=== PATIENT | female | born 1995 | race Caucasian/White ===

== ENCOUNTER 2024-08-04 12:17 | Emergency (ER) | payer OTHER ==
[2024-08-04 12:40] VITALS: TEMP 96.4
[2024-08-04] MEDS ORDERED: BENADRYL 50 MG/ML ONE (13:22)
[2024-08-04] MEDS ORDERED: TORAdol 30 mg Injection ONE (13:22)
[2024-08-04] MEDS ORDERED: Sodium Chloride 0.9% 1000 ML 1,000 ML ONE (13:22)
[2024-08-04] MEDS ORDERED: Compazine 10 MG/2 ML ONE (13:22)
[2024-08-04] MEDS: Compazine 10 MG/2 ML IV ONE (13:25)
[2024-08-04] MEDS: Sodium Chloride 0.9% 1000 ML 1,000 ML IV STA (13:25)
[2024-08-04] MEDS: BENADRYL 50 MG/ML IV ONE (13:26)
[2024-08-04] MEDS: TORAdol 30 mg Injection IV ONE (13:26)
[2024-08-04 13:43] LABS: Absolute Neutrophil Ct (ANC) 6.66 x10^3/uL (1.56-6.13); BASOPHIL % 0.8 % (0.1-1.2); Basophil (Absolute #) 0.09 x10^3/uL (0.01-0.08); Eosinophil % 3.7 % (0.7-5.8); Eosinophil (Absolute #) 0.42 x10^3/uL (0.04-0.36); Hemoglobin 13.5 g/dL (11.2-15.7); IMMATURE GRAN # 0.04 x10^3u/L (0.001-0.031); IMMATURE GRAN % 0.4 % (0.001-0.429); Lymphocytes % 29.4 % (19.3-51.7); Mean Cell Volume 90.1 fL (79.4-94.8); Mean Corpuscular Hemoglobin 29.7 pg (25.6-32.2); Mean Corpuscular Hgb Concent. 32.9 g/dL (32.2-35.5); Monocytes % 6.2 % (4.7-12.5); Neutrophil % 59.5 % (34.0-71.1); Platelet Count 302 x10^3/uL (182-369); Red Blood Count 4.55 x10^6/uL (3.93-5.22); Red Cell Distribution Width 12.3 % (11.7-14.4); White Blood Count 11.2 x10^3/uL (3.98-10.04)
[2024-08-04 13:56] LABS: ALBUMIN 3.9 g/dL (3.5-5.0); ANION GAP 11.6 MEQ/L (5-15); BILIRUBIN,TOTAL 0.3 mg/dL (0.2-1.3); Calcium 9.1 mg/dL (8.4-10.2); Creatinine 1 0.92 mg/dL (0.52-1.04); Potassium 4.1 mmol/L (3.5-5.1); Total Protein 7.6 g/dL (6.3-8.2)
--- NOTE | 2024-08-04 13:59 | XRAY ---
Indication: Left head injury. Seizure. Multiple contiguous axial images obtained through the head without contrast. Comparison: None Normal appearing brain parenchyma, ventricles, and bony calvarium. Visualized paranasal sinuses and mastoid air cells are clear. Impression: Normal CT head without contrast exam.
[2024-08-04 14:04] VITALS: BP 158/108; PULSE 70; RESP 26; O2SAT 98
--- NOTE | 2024-08-04 14:13 | ERPHSYRPT ---
- History of Present Illness Time Seen by Provider: 08/04/24 12:50 Source: patient Exam Limitations: no limitations Patient Subjective Stated Complaint: pt states that she gets headaches after a seizure and she had one this morning, pt states that she did hit the left back side of her head on a concrete floor Triage Nursing Assessment: Pt was brought to the ER by her sister, tony wnl, rates pain as 8.5-9/10, pulses normal, pt walked into the ER without assistance, skin n/w/d, no difficulty breathing, head tender to palpataion on the left back side, N&V, hx of seizures Physician History: 28-year-old female presents to our ED for migraine headache. Patient states that she develops migraines after her seizures. Patient reports that she is new to town. Patient moved from her old home due to issues with her significant other. Patient has been in the area for approximately 1 month. Patient states she ran out of her medications occluding her antiepileptic medication. Patient had a seizure today. Patient is here for medication refill and management of her headache. No other complaints. No neck pain. Cervical spine cleared clinically. Symptoms are mild to moderate in intensity. Patient otherwise fe els well she voices no other complaints or concerns at this time. Portions of this note were created with voice recognition technology. There may be grammatical, spelling, punctuation or sound alike errors Timing/Duration: today Severity: moderate Modifying Factors: Improves With: nothing Associated Symptoms: denies symptoms Allergies/Adverse Reactions: amoxicillin Allergy (Verified 08/04/24 12:32) Anaphylactic Reaction bee venom protein (honey bee) Allergy (Verified 08/04/24 12:32) cefaclor [From Ceclor] Allergy (Verified 08/04/24 12:32) Anaphylactic Reaction ketoconazole Allergy (Verified 08/04/24 12:32) Anaphylactic Reaction Penicillins Allergy (Verified 08/04/24 12:32) Anaphylactic Reaction Home Medications: Epinephrine [Auvi-Q] 0.3 mg IJ UD 08/04/24 [History] Hx Influenza Vaccination/Date Given: Yes Hx Pneumococcal Vaccination/Date Given: Yes Travel Risk - International Travel Have you traveled outside of the country in past 3 weeks: No - Emerging Infectious Disease Are you exhibiting symptoms associated with any current EIDs: No - Review of Systems Constitutional: No Symptoms, No Fever, No Chills Eyes: No Symptoms Ears, Nose, & Throat: No Symptoms Respiratory: No Symptoms, No Cough, No Dyspnea Cardiac: No Symptoms, No Chest Pain, No Edema, No Syncope Abdominal/Gastrointestinal: No Symptoms, No Abdominal Pain, No Nausea, No Vomiting, No Diarrhea Genitourinary Symptoms: No Symptoms, No Dysuria Musculoskeletal: No Symptoms, No Back Pain, No Neck Pain Skin: No Symptoms, No Rash Neurological: No Symptoms, No Dizziness, No Focal Weakness, No Sensory Changes Psychological: No Symptoms Endocrine: No Symptoms Hematologic/Lymphatic: No Symptoms Immunological/Allergic: No Symptoms All Other Systems: Reviewed and Negative - Past Medical History Pertinent Past Medical History: Yes Neurological History: Seizures Respiratory History: Asthma Psycho-Social History: Attention Deficit Disorder - Past Surgical History Past Surgical History: Yes Gastrointestinal: Cholecystectomy Other Surgical History: teeth - Female History Hx Last Menstrual Period: 08/02/2024 Hx Now: No - Social History Smoking Status: Current every day smoker How long have you smoked: vape Exposure to second hand smoke: No Drug Use: marijuana - Social Determinants of Health Will the patient participate in the screening: Yes Do you worry about a steady place to live?: No Do you have any problems with any of the following?: No known problems In the past 12 months,have you had to go without utilities?: No Transportation Issues: No Has anyone in your support network made you feel unsafe?: No Have you or anyone in your house had to go without enough: No - Nursing Vital Signs Nursing Vital Signs: Initial Vital Signs Temperature 96.4 F 08/04/24 12:25 Pulse Rate 80 08/04/24 12:25 Blood Pressure 128/85 08/04/24 12:25 O2 Sat by Pulse Oximetry 97 08/04/24 12:25 Pain Scale Pain Intensity 9 - Physical Exam General Appearance: no apparent distress, alert Eye Exam: PERRL/EOMI, eyes nml inspection Ears, Nose, Throat Exam: normal ENT inspection, moist mucous membranes Neck Exam: normal inspection, full range of motion Respiratory Exam: normal breath sounds, lungs clear, airway intact, No respiratory distress Cardiovascular Exam: regular rate/rhythm, normal heart sounds, normal peripheral pulses Gastrointestinal/Abdomen Exam: soft, normal bowel sounds, No tenderness, No mass Back Exam: normal inspection, normal range of motion, No CVA tenderness, No vertebral tenderness Extremity Exam: normal inspection, normal range of motion, pelvis stable Neurologic Exam: alert, oriented x 3, cooperative, normal mood/affect, sensation nml, No motor deficits Skin Exam: normal color, warm, dry, No rash Lymphatic Exam: No adenopathy SpO2 Interpretation: normal SpO2: 98 O2 Delivery: Room Air - Course Nursing assessment & vital signs reviewed: Yes - CT Exams Head CT Interpretation: Tele-radiologist Report (CT head negative for acute intracranial pathology) Ordered Tests: Active Orders 24 hr Category Date Time Status Headlight Adjuster STAT Care 08/04/24 12:35 Active IV Insertion STAT Care 08/04/24 12:34 Active Pulse Oximetry (ED) STAT Care 08/04/24 12:34 Active HEAD WITHOUT CONTRAST [CT] Stat Exams 08/04/24 12:34 Completed CBC W DIFF Stat Lab 08/04/24 13:41 Completed CMP Stat Lab 08/04/24 13:41 Completed Medication Summary Discontinued Medications Generic Name Dose Route Start Last Admin Trade Name Freq PRN Reason Stop Dose Admin Diphenhydramine HCl 25 mg 08/04/24 12:38 08/04/24 13:26 Diphenhydramine Hcl 50 Mg/Ml Vial IV 08/04/24 12:39 25 mg STAT ONE Administration Diphenhydramine HCl Confirm 08/04/24 13:22 Diphenhydramine Hcl 50 Mg/Ml Vial Administered 08/04/24 13:23 Dose 50 mg .ROUTE .STK-MED ONE Sodium Chloride 1,000 mls @ 999 mls/hr 08/04/24 12:34 08/04/24 13:25 Sodium Chloride 0.9% 1000 Ml IV 08/04/24 13:34 999 mls/hr .Q1H1M STA Administration Sodium Chloride Confirm 08/04/24 13:22 Sodium Chloride 0.9% 1000 Ml Administered 08/04/24 13:23 Dose 1,000 mls @ ud .ROUTE .STK-MED ONE Ketorolac Tromethamine 30 mg 08/04/24 12:36 08/04/24 13:26 Ketorolac Tromethamine 30 Mg/Ml Inj IV 08/04/24 12:37 30 mg STAT ONE Administration Ketorolac Tromethamine Confirm 08/04/24 13:22 Ketorolac Tromethamine 30 Mg/Ml Inj Administered 08/04/24 13:23 Dose 30 mg .ROUTE .STK-[facility] ONE Prochlorperazine Edisylate 10 mg 08/04/24 12:36 08/04/24 13:25 Prochlorperazine Edisylate 10 Mg/2 Ml Vial IV 08/04/24 12:37 10 mg STAT ONE Administration Prochlorperazine Edisylate Confirm 08/04/24 13:22 Prochlorperazine Edisylate 10 Mg/2 Ml Vial Administered 08/04/24 13:23 Dose 10 mg .ROUTE .[facility] Lab/Rad Data: Laboratory Result Diagrams 08/04/24 13:41 08/04/24 13:41 Laboratory Results 08/04/24 08/04/24 Range/Units 13:41 13:41 WBC 11.2 H (3.98-10.04) x10^3/uL RBC 4.55 (3.93-5.22) x10^6/uL Hgb 13.5 (11.2-15.7) g/dL Hct 41.0 (34.1-44.9) % MCV 90.1 (79.4-94.8) fL MCH 29.7 (25.6-32.2) pg MCHC 32.9 (32.2-35.5) g/dL RDW 12.3 (11.7-14.4) % Plt Count 302 (182-369) x10^3/uL MPV 10.0 (9.4-12.3) fL Gran % 59.5 (34.0-71.1) % Immature Gran % (Auto) 0.4 (0.001-0.429) % Nucleat RBC Rel Count 0.0 (0.00-0.2) % Eos # (Auto) 0.42 H (0.04-0.36) x10^3/uL Immature Gran # (Auto) 0.04 H (0.001-0.031) x10^3u/L Absolute Lymphs (auto) 3.30 (1.18-3.74) x10^3/uL Absolute Monos (auto) 0.70 (0.24-0.86) x10^3/uL Absolute Nucleated RBC 0.00 (0.00-0.012) x10^3u/L Lymphocytes % 29.4 (19.3-51.7) % Monocytes % 6.2 (4.7-12.5) % Eosinophils % 3.7 (0.7-5.8) % Basophils % 0.8 (0.1-1.2) % Absolute Granulocytes 6.66 H (1.56-6.13) x10^3/uL Basophils # 0.09 H (0.01-0.08) x10^3/uL Sodium 142 (135-145) mmol/L Potassium 4.1 (3.5-5.1) mmol/L Chloride 109 H (98-107) mmol/L Carbon Dioxide 26 (22-30) mmol/L Anion Gap 11.6 (5-15) MEQ/L BUN 10 (7-17) mg/dL Creatinine 0.92 (0.52-1.04) mg/dL Estimated GFR 87.0 ML/MIN Glucose 96 (74-106) mg/dL Calcium 9.1 (8.4-10.2) mg/dL Total Bilirubin 0.30 (0.2-1.3) mg/dL AST 29 (14-36) U/L ALT 36 H (0-35) U/L Alkaline Phosphatase 69 (38-126) U/L Serum Total Protein 7.6 (6.3-8.2) g/dL Albumin 3.9 (3.5-5.0) g/dL - Progress Progress: improved Progress Note: 28-year-old female history of seizure. Patient noncompliant with her outpatient regimen. Patient reports she ran out. Patient had a seizure. Now complains o f a migraine headache. Physical exam essentially nonremarkable. Neurologic exam normal. CT head negative for acute intracranial pathology. Patient's headache treated and resolved. Medications refilled. Will discharge home. Patient voices no other complaints or concerns at this time. Vital stable. Laboratory workup essentially nonremarkable. Portions of this note were created with voice recognition technology. There may be grammatical, spelling, punctuation or sound alike errors Complexity of problem addressed is moderate acute complicated. No critical care time. Complex of data reviewed and analyzed is moderate. Test ordered test reviewed results analyzed and correlated clinically with history and physical exam. Risk of complication and or risk of morbidity/mortality of patient management is moderate. Refill medications forwarded to patient's pharmacy. Vital stable. Time spent to discharge patient approximately 20 minutes. Plan of care established for shared decision making. No social determinants of health present to impede follow-up Portions of this note were created with voice recognition technology. There may be grammatical, spelling, punctuation or sound alike errors 08/04/24 14:19 Counseled pt/family regarding: diagnosis, need for follow-up, rad results - Departure Departure Disposition: Home Clinical Impression: Migraine, Seizure, Noncompliance with medication regimen, Medication refill Condition: Stable Critical Care Time: No Referrals: DASIA VICTORIA DO [Primary Care Provider] - Follow up/PCP as directed JAIME HERBERT MD [ACTIVE STAFF] - Follow up/PCP as directed Additional Instructions: Discharge/Care Plan JOHN ALLEN was seen on 08/04/24 in the Emergency Room. The patient was counseled regarding Diagnosis,Lab results, Imaging studies, need for follow up and when to return to the Emergency Room. Prescriptions given: Discharge Note I have spoken with the patient and/or caregivers. I have explained the patient's condition, diagnosis and treatment plan based on the information available to me at this time. I have answered the patient's and/or caregiver's questions and addressed any concerns. The patient and/or caregivers have as good understanding of the patient's diagnosis, condition and treatment plan as can be expected at this point. The vital signs have been stable. The patient's condition is stable and appropriate for discharge from the emergency department. The patient will pursue further outpatient evaluation with the primary care physician or other designated or consulting physician as outlined in the discharge instructions. The patient and/or caregivers are agreeable to this plan of care and follow-up instructions have been explained in detail. The patient and/or caregivers have received these instruction. The patient/and or caregivers are aware that any significant change in condition or worsening of symptoms should prompt an immediate return to this or the closest emergency department or call 911. Prescriptions: lamoTRIgine [Lamictal] 150 mg PO BID 14 Days #28 tablet Atomoxetine HCl [Strattera] 40 mg PO DAILY 14 Days #14 cap
== END 2024-08-04 14:26 | disposition home or self-care (01) ==
LOC: ED 12:17
DX: G43.909 Migraine, unspecified, not intractable, without status migrainosus (principal); G40.909 Epilepsy, unspecified, not intractable, without status epilepticus; T42.6X6A Underdosing of other antiepileptic and sedative-hypnotic drugs, initial encounter; Z91.148 Patient's other noncompliance with medication regimen for other reason; Z76.0 Encounter for issue of repeat prescription; Z79.899 Other long term (current) drug therapy; Z72.0 Tobacco use
CPT/HCPCS: 36000; 36415; 70450; 80053; 85025; 93041; 94760; 96360; 96374; 96375; 99284; J1200; J1885